=== PATIENT | male | born 1955 | race American Indian/Alaskan Native ===

== ENCOUNTER 2017-07-07 07:47 | Outpatient (CLI) | payer OTHER ==
--- NOTE | 2017-07-07 09:04 | Magnetic Resonance Report ---
MR CERVICAL SPINE WITHOUT CONTRAST HISTORY: Spondylosis without myelopathy or radiculopathy, cervical region. TECHNIQUE: Axial T2 and T2 gradient. Sagittal T1, T2 and STIR. COMPARISON: None. FINDINGS: There is normal height and alignment of the cervical vertebral bodies. No evidence for fracture or bone lesion. Mild Modic degenerative endplate changes are noted at C4-5 and C5-6. There is diffuse disc desiccation and mild narrowing. Mild diffuse facet arthropathy. The cervical spinal cord demonstrates normal size and signal intensity throughout. No mass or abnormal intramedullary signal. C2-3: No significant abnormality. C3-4: Mild bilateral uncovertebral spurring and mild facet arthropathy are identified. Bilateral neural foraminal narrowing is estimated at 50%. C4-5: Moderate posterior and bilateral uncovertebral spurring is identified which lateralizes to the left side. There is mild mass effect on the anterior spinal cord with mild central canal stenosis measuring 9 mm in AP dimension. Moderate right neural foraminal narrowing is estimated at 50%. Severe left neural foraminal narrowing is estimated at greater than 75%. C5-6: Moderate to severe posterior and bilateral uncovertebral spurring is identified which again lateralizes to the left side. There is mild mass effect on the anterior spinal cord with mild to moderate central canal narrowing measuring 8 mm in AP dimension. Right neural foraminal narrowing is estimated at 50%. There is severe left neural foraminal narrowing estimated at greater than 75%. C6-7: Mild bilateral uncovertebral spurring, left greater than right. Mild left neural foraminal narrowing is estimated at 50%. C7-T1: No significant abnormality. IMPRESSION: Moderate cervical spondylosis as described. C4-5 and C5-6 are the most affected levels resulting in central canal narrowing and significant neuroforaminal narrowing as outlined above.
== END 2017-07-07 07:48 | disposition home or self-care (01) ==
LOC: MRI 07:47
PROVIDERS: ATTEND Pain Medicine Interventional Pain Medicine
DX: M48.02 Spinal stenosis, cervical region (principal); M47.812 Spondylosis without myelopathy or radiculopathy, cervical region; M47.892 Other spondylosis, cervical region; M12.88 Other specific arthropathies, not elsewhere classified, other specified site; M53.82 Other specified dorsopathies, cervical region
CPT/HCPCS: 72141